=== PATIENT | male | born 1990 | race Caucasian/White ===

== ENCOUNTER 2017-09-11 16:11 | Emergency (ER) | payer OTHER ==
[~2017-09-11] VITALS: Ht 182.9 cm; Wt 90.0 kg
[2017-09-11] MEDS ORDERED: SODIUM CHLOR 0.9% 1000 ML INJ 1,000 ML IV SCH (16:23)
[2017-09-11] MEDS ORDERED: MORPHINE SULFATE 4 MG/ML INJ IV PUSH ONE (16:30)
[2017-09-11] MEDS ORDERED: ONDANSETRON HCL 4 MG/2 ML VIAL IVP ONE (16:30)
[2017-09-11] MEDS ORDERED: SODIUM CHLORIDE 0.9% FLUSH 10 ML FLUSH IV FLUSH PRN (16:30)
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
[2017-09-11 16:45] VITALS: BP 143/85; PULSE 85; RESP 19; TEMP 98.1; O2SAT 100
[2017-09-11] MEDS ORDERED: CITA20TA4 PO (16:51)
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
[2017-09-11 19:38] VITALS: BP 145/74; PULSE 80; RESP 18; O2SAT 100
[2017-09-11] MEDS ORDERED: oxyCODONE/ACETAMINOPHEN 5 MG/325 MG TAB PO ONE (20:45)
[2017-09-11] MEDS ORDERED: PERC5TAB12 PO (20:47)
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
== END 2017-09-11 21:18 | disposition home or self-care (01) ==
LOC: NEPD 16:11
DX: S00.11XA Contusion of right eyelid and periocular area, initial encounter (principal); Y04.0XXA Assault by unarmed brawl or fight, initial encounter
CPT/HCPCS: 70450; 70486; 71250; 72125; 74176; 96361; 96374; 96375; 99284; J2270; J2405; J7030